=== PATIENT | female | born 1990 | race American Indian/Alaskan Native ===

== ENCOUNTER 2018-11-19 19:48 | Emergency (ER) | payer OTHER ==
[2018-11-19 19:59] VITALS: BP 130/87
[2018-11-19] MEDS ORDERED: ULTRAM PO ONE (22:03)
[2018-11-19] MEDS ORDERED: TRIMOX PO ONE (22:03)
--- NOTE | 2018-11-19 22:38 | Emergency Department Report ---
ED ENT HPI - General Chief complaint: Dental/Oral Stated complaint: TOOTHACHE Time Seen by Provider: 11/19/18 21:58 Source: patient Mode of arrival: Ambulatory Limitations: No Limitations - History of Present Illness Initial comments: pt presents for dental pain x 1 week hx of dental carrries pain is 5/10 aching mild gum swelling no facial swelling no throat or ear pain pt is tolerating po intake without symptoms MD complaint: tooth pain Onset/Timin -: week(s) Location: tooth # (19) Severity: moderate Severity scale (0 -10): 5 Quality: aching Consistency: constant Worsens with: eating, other (hot cold stimuli) Context- Dental: history of dental caries, poor dental care Associated Symptoms: gum swelling, toothache - Related Data Previous Rx's Medication Instructions Recorded Last Taken Type Amoxicillin 500 mg PO TID 10 Days #30 capsule 11/19/18 Unknown Rx Chlorhexidine Mouthwash [Peridex] 15 ml MM BID #1 bottle 11/19/18 Unknown Rx Tramadol HCl [Ultram] 50 mg PO Q6H PRN #12 tablet 11/19/18 Unknown Rx Allergies Allergy/AdvReac Type Severity Reaction Status Date / Time No Known Allergies Allergy Unverified 11/19/18 19:54 ED Dental HPI - General Chief complaint: Dental/Oral Stated complaint: TOOTHACHE Time Seen by Provider: 11/19/18 21:58 Source: patient Mode of arrival: Ambulatory Limitations: No Limitations - Related Data Previous Rx's Medication Instructions Recorded Last Taken Type Amoxicillin 500 mg PO TID 10 Days #30 capsule 11/19/18 Unknown Rx Chlorhexidine Mouthwash [Peridex] 15 ml MM BID #1 bottle 11/19/18 Unknown Rx Tramadol HCl [Ultram] 50 mg PO Q6H PRN #12 tablet 11/19/18 Unknown Rx Allergies Allergy/AdvReac Type Severity Reaction Status Date / Time No Known Allergies Allergy Unverified 11/19/18 19:54 ED Review of Systems ROS: Stated complaint: TOOTHACHE Other details as noted in HPI Constitutional: denies: chills, fever Eyes: denies: eye pain, eye discharge, vision change ENT: dental pain. denies: ear pain, throat pain, hearing loss, epistaxis, congestion Respiratory: denies: cough, shortness of breath, wheezing Cardiovascular: denies: chest pain, palpitations Endocrine: no symptoms reported Gastrointestinal: denies: abdominal pain, nausea, diarrhea Genitourinary: denies: urgency, dysuria, discharge Musculoskeletal: denies: back pain, joint swelling, arthralgia Skin: denies: rash, lesions Neurological: denies: headache, weakness, paresthesias Psychiatric: denies: anxiety, depression Hematological/Lymphatic: denies: easy bleeding, easy bruising ED Past Medical Hx - Social History Smoking Status: Never Smoker - Medications Home Medications: Home Medications Medication Instructions Recorded Confirmed Last Taken Type Amoxicillin 500 mg PO TID 10 Days #30 capsule 11/19/18 Unknown Rx Chlorhexidine Mouthwash [Peridex] 15 ml MM BID #1 bottle 11/19/18 Unknown Rx Tramadol HCl [Ultram] 50 mg PO Q6H PRN #12 tablet 11/19/18 Unknown Rx ED Physical Exam - General Limitations: No Limitations ED Course Vital Signs 11/19/18 11/19/18 11/19/18 19:58 20:16 22:14 Temperature 98.0 F 98.0 F Pulse Rate 74 76 Respiratory 18 18 18 Rate Blood Pressure 130/87 130/87 O2 Sat by Pulse 99 99 Oximetry ED Medical Decision Making - Medical Decision Making this infected dental carries plan, amoxicillin , ultram, peridex, given referral to [facility] dental service, pt verbalized agreement and understanding of discharge plan. pt for discharge to home in stable condition at this time. Critical care attestation.: If time is entered above; I have spent that time in minutes in the direct care of this critically ill patient, excluding procedure time. ED Disposition Clinical Impression: Infected dental caries Disposition: - TO HOME OR SELFCARE Is pt being admited?: No Does the pt Need Aspirin: No Condition: Stable Instructions: Dental Caries (ED) Prescriptions: Amoxicillin 500 mg PO TID 10 Days #30 capsule Chlorhexidine Mouthwash [Peridex] 15 ml MM BID #1 bottle Tramadol HCl [Ultram] 50 mg PO Q6H PRN #12 tablet PRN Reason: pain Referrals: [facility] [Outside] - 3-5 Days Forms: AMA Form, Work/School Release Form(ED) Time of Disposition: 22:50
== END 2018-11-19 22:55 | disposition home or self-care (01) ==
LOC: ED 19:48
DX: K02.9 Dental caries, unspecified (principal)
CPT/HCPCS: 99282

== ENCOUNTER 2019-10-25 17:09 | Emergency (ER) | payer SELFPAY ==
[2019-10-25 18:21] VITALS: BP 112/92
[2019-10-25] MEDS ORDERED: HYDROcodone/ACETAMINOPHEN 5-325 MG TAB PO ONE (21:14)
[2019-10-25] MEDS ORDERED: LIDOCAINE-MPF (1%) 10 MG/1 ML VIAL 5 ML INFILTRATI ONE (21:14)
--- NOTE | 2019-10-25 22:33 | Emergency Department Report ---
{null, Abscess Boil HPI - HPI Chief Complaint: Skin/Abscess/Foreign Body Stated Complaint: SWOLLEN FINGER Time Seen by Provider: 10/25/19 21:14 Duration: 3 Days Location: Upper Extremity (right middle finger paronychia) Severity: None History: Yes Pain, No Fever, No Purulent Drainage, No Numbness, No Foreign Body, No Previous History, No Insect Bite HPI: infection after acrylic nail placement 5 day ago. Home Medications: Previous Rx's Medication Instructions Recorded Last Taken Type Amoxicillin 500 mg PO TID 10 Days #30 capsule 11/19/18 Unknown Rx Chlorhexidine Mouthwash [Peridex] 15 ml MM BID #1 bottle 11/19/18 Unknown Rx Tramadol HCl [Ultram] 50 mg PO Q6H PRN #12 tablet 11/19/18 Unknown Rx cephALEXin [Keflex] 500 mg PO Q8HR 7 Days #21 cap 10/25/19 Unknown Rx traMADoL [Ultram] 50 mg PO Q6HR PRN #12 tablet 10/25/19 Unknown Rx Allergies/Adverse Reactions: Allergies Allergy/AdvReac Type Severity Reaction Status Date / Time No Known Allergies Allergy Unverified 11/19/18 19:54 ED Review of Systems ROS: Stated complaint: SWOLLEN FINGER Other details as noted in HPI Constitutional: denies: chills, fever Eyes: denies: eye pain, eye discharge, vision change ENT: denies: ear pain, throat pain Respiratory: denies: cough, shortness of breath, wheezing Cardiovascular: denies: chest pain, palpitations Endocrine: no symptoms reported Gastrointestinal: denies: abdominal pain, nausea, diarrhea Genitourinary: denies: urgency, dysuria, discharge Musculoskeletal: other (right middle finger pain swelling ). denies: back pain, joint swelling, arthralgia Skin: change in hair/nails (right middle finger paronychia ) Neurological: denies: headache, weakness, paresthesias Psychiatric: denies: anxiety, depression Hematological/Lymphatic: denies: easy bleeding, easy bruising ED Past Medical Hx - Past Medical History Previous Medical History?: No - Surgical History Past Surgical History?: No - Social History Smoking Status: Never Smoker Substance Use Type: None - Medications Home Medications: Home Medications Medication Instructions Recorded Confirmed Last Taken Type Amoxicillin 500 mg PO TID 10 Days #30 capsule 11/19/18 Unknown Rx Chlorhexidine Mouthwash [Peridex] 15 ml MM BID #1 bottle 11/19/18 Unknown Rx Tramadol HCl [Ultram] 50 mg PO Q6H PRN #12 tablet 11/19/18 Unknown Rx cephALEXin [Keflex] 500 mg PO Q8HR 7 Days #21 cap 10/25/19 Unknown Rx traMADoL [Ultram] 50 mg PO Q6HR PRN #12 tablet 10/25/19 Unknown Rx ED Abscess Boil Physical Exam - Exam General: Vital signs noted. No distress. Alert and acting appropriately. Size: 1 cm Exam: Yes Tenderness, Yes Surrounding Cellulites/Erythema, Yes Normal Neurologic Exam, Yes Normal Circulation, No Fluctuance, No Lymphangitis, No Crepitation, No Heart Murmur I & D Note - I & D Note I & D Note: Right middle finger paronychia site cleaned with Betadine solution. Anesthesia with lidocaine 1% via digital block, incision with 11 blade moderate purulent discharge nailbed explored irrigated with 10 cc sterile saline, sterile dressing applied all bleeding is controlled. Patient tolerated procedure with minimal distress ED Course Vital Signs 10/25/19 10/25/19 18:19 21:21 Temperature 98.7 F Pulse Rate 105 H Respiratory 18 18 Rate Blood Pressure 112/92 O2 Sat by Pulse 100 Oximetry Critical care attestation.: If time is entered above; I have spent that time in minutes in the direct care of this critically ill patient, excluding procedure time. ED Medical Decision Making - Medical Decision Making right middle finger paronychia, I&D , no bleeding, pt tolerated procedure with minimal distress, plan: Keflex, ultram, wound care as directed, follow up with pcp in 2 days for wound check, pt verbalized agreement and understanding of same. ED Disposition Clinical Impression: Paronychia of right middle finger Disposition: DC-01 TO HOME OR SELFCARE Is pt being admited?: No Does the pt Need Aspirin: No Condition: Stable Instructions: Paronychia (ED) Prescriptions: cephALEXin [Keflex] 500 mg PO Q8HR 7 Days #21 cap traMADoL [Ultram] 50 mg PO Q6HR PRN #12 tablet PRN Reason: Pain Referrals: [facility] [Outside] - 3-5 Days Forms: Work/School Release Form(ED) Time of Disposition: 22:35 }
== END 2019-10-25 22:47 | disposition home or self-care (01) ==
LOC: ED 17:09
DX: L03.011 Cellulitis of right finger (principal); Z79.899 Other long term (current) drug therapy
CPT/HCPCS: 99282

== ENCOUNTER 2020-08-19 21:30 | Emergency (ER) | payer SELFPAY ==
[2020-08-19 23:26] VITALS: BP 128/79
[2020-08-20] MEDS ORDERED: cephALEXin 500 MG CAP PO ONE (03:34)
[2020-08-20] MEDS ORDERED: ACETAMINOPHEN W/CODEINE 300-30 MG TAB PO ONE (03:34)
[2020-08-20] MEDS ORDERED: IBUPROFEN 800 MG TAB PO ONE (03:34)
[2020-08-20] MEDS ORDERED: cephALEXin 500 MG CAP ONE ×2 (03:39→03:40)
[2020-08-20] MEDS ORDERED: ACETAMINOPHEN W/CODEINE 300-30 MG TAB ONE (03:40)
[2020-08-20] MEDS ORDERED: IBUPROFEN 800 MG TAB ONE (03:40)
--- NOTE | 2020-08-20 04:38 | Emergency Department Report ---
ED Upper Extremity Inj HPI - General Chief Complaint: Extremity Injury, Upper Stated Complaint: FINGER INFECTED Source: patient Mode of arrival: Ambulatory Limitations: No Limitations - History of Present Illness Initial Comments: Patient is a 30-year-old -[place] female with no past medical history presents to the ED with complaint of acute onset painful distal left middle finger partial nail avulsion with abrasion after she accidentally hit her left middle finger against the piece of furniture at home which resulted in her acrylic nails breaking and peeling her nailbed about 12 hours ago. Patient states that she went to work with the injured finger and the pain got worse while at work. Patient states that she is up-to-date with all her tetanus vaccinations. Patient denies dizziness, syncope, numbness and tingling or weakness of left hand or left middle finger. MD Complaint: Injury to:: left, finger (middle fingernail avulsion and abrasion) -: Sudden Other Extremity Injury: Fingers: Left (middle finger) Other Injuries: none Handedness: left Place: home Severity scale (0 -10): 8 Improves With: none Worsens With: movement of extremity Context: direct blow Associated Symptoms: denies other symptoms. denies: weakness, numbness, neck pain, suspects foreign body, nausea/vomiting, heard/felt popping sensat - Related Data Previous Rx's Medication Instructions Recorded Last Taken Type Amoxicillin 500 mg PO TID 10 Days #30 capsule 11/19/18 Unknown Rx Chlorhexidine Mouthwash [Peridex] 15 ml MM BID #1 bottle 11/19/18 Unknown Rx Tramadol HCl [Ultram] 50 mg PO Q6H PRN #12 tablet 11/19/18 Unknown Rx cephALEXin [Keflex] 500 mg PO Q8HR 7 Days #21 cap 10/25/19 Unknown Rx Ibuprofen [Motrin] 800 mg PO Q8HR PRN #30 tablet 08/20/20 Unknown Rx Sulfamethoxazole/Trimethoprim 1 each PO Q12H #20 tablet 08/20/20 Unknown Rx [Bactrim DS TAB] traMADoL [Ultram 50 MG tab] 50 mg PO Q6HR PRN #10 tablet 08/20/20 Unknown Rx Allergies Allergy/AdvReac Type Severity Reaction Status Date / Time No Known Allergies Allergy Verified 03/12/20 16:14 ED Review of Systems ROS: Stated complaint: FINGER INFECTED Other details as noted in HPI Constitutional: denies: chills, fever Eyes: denies: eye pain, eye discharge, vision change ENT: denies: ear pain, throat pain Respiratory: denies: cough, shortness of breath, wheezing Cardiovascular: denies: chest pain, palpitations Endocrine: no symptoms reported Gastrointestinal: denies: abdominal pain, nausea, diarrhea Genitourinary: denies: urgency, dysuria, discharge Musculoskeletal: arthralgia (Left middle fingernail avulsion with pain). denies: back pain, joint swelling Skin: other (Left middle finger nail avulsion). denies: rash, lesions Neurological: denies: headache, weakness, paresthesias Psychiatric: denies: anxiety, depression Hematological/Lymphatic: denies: easy bleeding, easy bruising ED Past Medical Hx - Social History Smoking Status: Never Smoker Substance Use Type: None - Medications Home Medications: Home Medications Medication Instructions Recorded Confirmed Last Taken Type Amoxicillin 500 mg PO TID 10 Days #30 capsule 11/19/18 Unknown Rx Chlorhexidine Mouthwash [Peridex] 15 ml MM BID #1 bottle 11/19/18 Unknown Rx Tramadol HCl [Ultram] 50 mg PO Q6H PRN #12 tablet 11/19/18 Unknown Rx cephALEXin [Keflex] 500 mg PO Q8HR 7 Days #21 cap 10/25/19 Unknown Rx Ibuprofen [Motrin] 800 mg PO Q8HR PRN #30 tablet 08/20/20 Unknown Rx Sulfamethoxazole/Trimethoprim 1 each PO Q12H #20 tablet 08/20/20 Unknown Rx [Bactrim DS TAB] traMADoL [Ultram 50 MG tab] 50 mg PO Q6HR PRN #10 tablet 08/20/20 Unknown Rx ED Physical Exam - General Limitations: No Limitations General appearance: alert, in no apparent distress - Head Head exam: Present: atraumatic, normocephalic, normal inspection - Eye Eye exam: Present: normal appearance, PERRL, EOMI Pupils: Present: normal accommodation - ENT ENT exam: Present: normal exam, normal orophraynx, mucous membranes moist, TM's normal bilaterally, normal external ear exam - Neck Neck exam: Present: normal inspection, full ROM - Respiratory Respiratory exam: Present: normal lung sounds bilaterally. Absent: respiratory distress, wheezes, rales, rhonchi, chest wall tenderness, decreased breath sounds - Cardiovascular Cardiovascular Exam: Present: regular rate, normal rhythm, normal heart sounds. Absent: systolic murmur, diastolic murmur, rubs, gallop - GI/Abdominal GI/Abdominal exam: Present: soft, normal bowel sounds. Absent: tenderness, guarding, rebound, hyperactive bowel sounds, hypoactive bowel sounds, organomegaly - Extremities Exam Extremities exam: Present: normal inspection, full ROM, tenderness (Palpable le ft middle finger tenderness due to partial left middle finger nail avulsion with abrasion), normal capillary refill - Back Exam Back exam: Present: normal inspection, full ROM. Absent: tenderness, CVA tenderness (L), muscle spasm, paraspinal tenderness, vertebral tenderness - Neurological Exam Neurological exam: Present: alert, oriented X3, CN II-XII intact, normal gait, reflexes normal - Psychiatric Psychiatric exam: Present: normal affect, normal mood - Skin Skin exam: Present: warm, dry, intact, normal color, abrasion (Distal left middle finger abrasion with partial nail avulsion and tenderness). Absent: rash ED Course Vital Signs 08/19/20 23:18 Temperature 98.1 F Pulse Rate 71 Respiratory 17 Rate Blood Pressure 128/79 O2 Sat by Pulse 99 Oximetry ED Medical Decision Making - Medical Decision Making This is a 30-year-old -[place] female with no past medical history presents to the ED with complaint of acute onset painful distal left middle finger partial nail avulsion with abrasion after she accidentally hit her left middle finger against the piece of furniture at home which resulted in her acrylic nails breaking and peeling her nailbed about 12 hours ago. Patient states that she went to work with the injured finger and the pain got worse while at work. Patient states that she is up-to-date with all her tetanus vaccinations. In the ED, patient is alert and oriented x3 and is not in distress. Patient however appears to be in significant pain. Patient was treated for pain in the ED and also given initial oral antibiotics in the ED. Patient was discharged home on pain medication and oral antibiotics. Patient was advised to follow-up with her primary care physician in 5 to 7 days for reevaluation or return to the ED immediately if symptoms get worse. - Differential Diagnosis nail avulsion; abrasions; laceration; finger injury Critical care attestation.: If time is entered above; I have spent that time in minutes in the direct care of this critically ill patient, excluding procedure time. ED Disposition Clinical Impression: Avulsion of fingernail of left hand, Superficial injury of left middle finger with infection Disposition: TO HOME OR SELFCARE Is pt being admited?: No Does the pt Need Aspirin: No Condition: Stable Instructions: Nail Avulsion, Fingertip Infection Additional Instructions: Take medication with food, drink plenty of fluids and follow-up with your primary care physician in 7 to 10 days for reevaluation. Return to the ED immediately if symptoms get worse. Prescriptions: Sulfamethoxazole/Trimethoprim [Bactrim DS TAB] 1 each PO Q12H #20 tablet Ibuprofen [Motrin] 800 mg PO Q8HR PRN #30 tablet PRN Reason: Pain , Severe (7-10) traMADoL [Ultram 50 MG tab] 50 mg PO Q6HR PRN #10 tablet PRN Reason: Pain Referrals: [facility] [Provider Group] - 3-5 Days Forms: Work/School Release Form(ED) Time of Disposition: 04:42 Print Language: [place]
== END 2020-08-20 04:45 | disposition home or self-care (01) ==
LOC: ED 21:30
DX: S61.301A Unspecified open wound of left index finger with damage to nail, initial encounter (principal); Z79.899 Other long term (current) drug therapy; X58.XXXA Exposure to other specified factors, initial encounter; Y93.89 Activity, other specified; Y92.89 Other specified places as the place of occurrence of the external cause; Y99.8 Other external cause status
CPT/HCPCS: 99282

== ENCOUNTER 2022-03-15 12:42 | Emergency (ER) | payer SELFPAY ==
[2022-03-15 13:59] VITALS: BP 124/83
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
== END 2022-03-15 16:20 | disposition home or self-care (01) ==
LOC: ED 12:42
DX: M79.671 Pain in right foot (principal)
CPT/HCPCS: 99282